=== PATIENT | female | born 1950 | race Hispanic/Latino ===

== ENCOUNTER → 2017-12-04 | Day surgery (SDC) | payer MEDICARE ==
[~2017-12-04] MED LIST: CRESTOR10 MG PO; FAMOTIDINE20 MG PO; FENOFIBRATE145 MG PO; FENTANYL CITRATE/PF 100MCG/2 ML INJ ONE; MIDAZOLAM HCL 2 MG/2 ML VIAL ONE; MYBETRIQ PO; OR PHACO EYE KIT ONE; PREOP PHACO EYE KIT ONE; ZOLOFT50 MG PO
== END | disposition home or self-care (01) ==
LOC: OR 09:02
PROVIDERS: ATTEND Ophthalmology
DX: H25.12 Age-related nuclear cataract, left eye (principal); E78.5 Hyperlipidemia, unspecified; M81.0 Age-related osteoporosis without current pathological fracture; K21.9 Gastro-esophageal reflux disease without esophagitis; F32.9 Major depressive disorder, single episode, unspecified; F41.9 Anxiety disorder, unspecified
CPT/HCPCS: 66984; J2250

== ENCOUNTER → 2018-01-01 | Day surgery (SDC) | payer MEDICARE | END | disposition home or self-care (01) | LOC: OR 08:38 | PROVIDERS: ATTEND Ophthalmology | DX: H25.11 Age-related nuclear cataract, right eye (principal); E78.00 Pure hypercholesterolemia, unspecified; F41.9 Anxiety disorder, unspecified | CPT/HCPCS: 66984; J2250; V2632 ==